=== PATIENT | female | born 1940 | race Caucasian/White ===

== ENCOUNTER 2018-06-03 16:35 | Inpatient (IN) | payer MEDICARE, MEDICAID ==
[~2018-06-03] VITALS: Ht 162.6 cm; Wt 49.9 kg
[2018-06-03] MEDS ORDERED: Z GUARD REMEDY PASTE 57 GM TUBE TOP PRN (16:45)
[2018-06-03] MEDS ORDERED: MAGNESIUM HYDROXIDE 30 ML LIQUID UDC PO PRN (16:45)
[2018-06-03] MEDS ORDERED: PANT40TA4 PO (17:12)
[2018-06-03] MEDS ORDERED: ASPI81TA31 PO (17:12)
[2018-06-03] MEDS ORDERED: ATOR20TA PO (17:12)
[2018-06-03] MEDS ORDERED: ONDA4TAB8 PO (17:12)
[2018-06-03] MEDS ORDERED: MIRT15TA PO (17:12)
[2018-06-03] MEDS ORDERED: FAMO20TA8 PO (17:12)
[2018-06-03] MEDS ORDERED: QUET25TA PO (17:12)
[2018-06-03] MEDS ORDERED: TRAM50TA2 PO (17:12)
[2018-06-03] MEDS ORDERED: CHOL10002 PO (17:12)
[2018-06-03] MEDS ORDERED: MERO500V3 IV (17:12)
[2018-06-03] MEDS ORDERED: SERT50TA PO (17:12)
[2018-06-03] MEDS ORDERED: ALLO100T PO (17:12)
[2018-06-03] MEDS ORDERED: METO25TA3 PO (17:12)
[2018-06-03] MEDS: DOCUSATE SODIUM 100 MG CAPSULE PO SCH (21:00)
[2018-06-04 05:14] VITALS: BP 141/56
[2018-06-04 06:30] VITALS: BP 128/53
[2018-06-04 08:30] VITALS: BP 128/73
[2018-06-04] MEDS ORDERED: ONDANSETRON ODT 4 MG TAB.RAPDIS SL PRN (09:15)
[2018-06-04] MEDS: PANTOPRAZOLE SODIUM 40 MG TABLET.DR PO SCH (11:17)
[2018-06-04] MEDS: ACETAMINOPHEN 325 MG TABLET PO PRN (13:02)
[2018-06-04 16:11] VITALS: BP 110/58
[2018-06-04 19:00] VITALS: BP 129/66
[2018-06-04] MEDS: QUETIAPINE FUMARATE 25 MG TABLET PO SCH (20:34)
[2018-06-04] MEDS: ATORVASTATIN 20 MG TABLET PO SCH (20:35)
[2018-06-04] MEDS: MIRTAZAPINE 15 MG TABLET PO SCH (20:35)
[2018-06-04] MEDS: DOCUSATE SODIUM 100 MG CAPSULE PO SCH (20:35)
[2018-06-04] MEDS ORDERED: FLUTICASONE/SALMETEROL 500/50 EACH DISK.W.DEV INH SCH (21:00)
[2018-06-04] MEDS: FLUTICASONE/VILANTEROL 1 EACH BLST.W.DEV INH SCH (21:57)
[2018-06-04] MEDS: MEROPENEM 500 MG in IV NORMAL SALINE 50 ML IV SCH (21:59)
[2018-06-04] MEDS: ALBUTEROL SULFATE 1.25 MG/3 ML NEBU NEB PRN (22:13)
[2018-06-05 04:00] VITALS: BP 131/66
[2018-06-05] MEDS: PANTOPRAZOLE SODIUM 40 MG TABLET.DR PO SCH (05:58)
[2018-06-05 07:34] VITALS: BP 129/61
[2018-06-05] MEDS ORDERED: FAMOTIDINE 20 MG TABLET PO SCH (09:00)
[2018-06-05] MEDS ORDERED: ALLOPURINOL 100 MG TABLET PO SCH (09:00)
[2018-06-05] MEDS: CHOLECALCIFEROL 1,000 UNIT TABLET PO SCH (09:10)
[2018-06-05] MEDS: ASPIRIN 81 MG TAB.CHEW PO SCH (09:10)
[2018-06-05] MEDS: FLUTICASONE/VILANTEROL 1 EACH BLST.W.DEV INH SCH ×2 (09:11→11:00)
[2018-06-05] MEDS: MEROPENEM 500 MG in IV NORMAL SALINE 50 ML IV SCH ×2 (09:13→20:32)
[2018-06-05] MEDS: SERTRALINE HCL 50 MG TABLET PO SCH (09:14)
[2018-06-05] MEDS: METOPROLOL SUCCINATE XL 25 MG TAB.SR.24H PO SCH (09:14)
[2018-06-05 16:14] VITALS: BP 128/61
[2018-06-05 19:41] VITALS: BP 120/62
[2018-06-05] MEDS: ATORVASTATIN 20 MG TABLET PO SCH (20:32)
[2018-06-05] MEDS: DOCUSATE SODIUM 100 MG CAPSULE PO SCH (20:32)
[2018-06-05] MEDS: MIRTAZAPINE 15 MG TABLET PO SCH (20:33)
[2018-06-05] MEDS: QUETIAPINE FUMARATE 25 MG TABLET PO SCH (20:35)
[2018-06-05] MEDS ORDERED: FLUTICASONE/SALMETEROL 500/50 EACH DISK.W.DEV INH SCH (21:00)
[2018-06-06 05:00] VITALS: BP 149/74
[2018-06-06] MEDS: PANTOPRAZOLE SODIUM 40 MG TABLET.DR PO SCH (05:27)
[2018-06-06 07:34] VITALS: BP 112/69
[2018-06-06] MEDS ORDERED: MUPIROCIN 2% OINT 22 GM TUBE NS SCH (09:00)
[2018-06-06] MEDS: CHOLECALCIFEROL 1,000 UNIT TABLET PO SCH ×2 (09:40→10:10)
[2018-06-06] MEDS: ALLOPURINOL 100 MG TABLET PO SCH ×2 (09:41→10:10)
[2018-06-06] MEDS: SERTRALINE HCL 50 MG TABLET PO SCH ×2 (09:41→10:10)
[2018-06-06] MEDS: METOPROLOL SUCCINATE XL 25 MG TAB.SR.24H PO SCH ×2 (09:41→10:11)
[2018-06-06] MEDS: ASPIRIN 81 MG TAB.CHEW PO SCH (10:11)
[2018-06-06] MEDS: MEROPENEM 500 MG in IV NORMAL SALINE 50 ML IV SCH (10:12)
[2018-06-06] MEDS: FLUTICASONE/VILANTEROL 1 EACH BLST.W.DEV INH SCH ×2 (10:12)
[2018-06-06] MEDS: ALBUTEROL SULFATE 1.25 MG/3 ML NEBU NEB PRN (15:29)
[2018-06-06 15:45] VITALS: BP 130/73
[2018-06-06 20:10] VITALS: BP 127/67
[2018-06-06] MEDS: QUETIAPINE FUMARATE 25 MG TABLET PO SCH (21:04)
[2018-06-06] MEDS: MIRTAZAPINE 15 MG TABLET PO SCH (21:04)
[2018-06-06] MEDS: DOCUSATE SODIUM 100 MG CAPSULE PO SCH (21:04)
[2018-06-06] MEDS: ATORVASTATIN 20 MG TABLET PO SCH (21:04)
[2018-06-07] MEDS: PANTOPRAZOLE SODIUM 40 MG TABLET.DR PO SCH (06:27)
[2018-06-07 08:00] VITALS: BP 130/67
[2018-06-07] MEDS: ALLOPURINOL 100 MG TABLET PO SCH (08:41)
[2018-06-07] MEDS: CHOLECALCIFEROL 1,000 UNIT TABLET PO SCH (08:41)
[2018-06-07] MEDS: SERTRALINE HCL 50 MG TABLET PO SCH (08:41)
[2018-06-07] MEDS: predniSONE 20 MG TABLET PO SCH (08:41)
[2018-06-07] MEDS: ASPIRIN 81 MG TAB.CHEW PO SCH (08:42)
[2018-06-07] MEDS: METOPROLOL SUCCINATE XL 25 MG TAB.SR.24H PO SCH (08:42)
[2018-06-07] MEDS: FLUTICASONE/VILANTEROL 1 EACH BLST.W.DEV INH SCH (08:43)
[2018-06-07 20:00] VITALS: BP 127/61
[2018-06-07] MEDS: ACETAMINOPHEN 325 MG TABLET PO PRN (20:12)
[2018-06-07] MEDS: QUETIAPINE FUMARATE 25 MG TABLET PO SCH (20:13)
[2018-06-07] MEDS: ATORVASTATIN 20 MG TABLET PO SCH (20:13)
[2018-06-07] MEDS: DOCUSATE SODIUM 100 MG CAPSULE PO SCH (20:13)
[2018-06-07] MEDS: MIRTAZAPINE 15 MG TABLET PO SCH (20:13)
[2018-06-08 05:54] VITALS: BP 128/65
[2018-06-08] MEDS: PANTOPRAZOLE SODIUM 40 MG TABLET.DR PO SCH (07:14)
[2018-06-08] MEDS: CHOLECALCIFEROL 1,000 UNIT TABLET PO SCH (08:16)
[2018-06-08] MEDS: ALLOPURINOL 100 MG TABLET PO SCH (08:17)
[2018-06-08] MEDS: SERTRALINE HCL 50 MG TABLET PO SCH (08:18)
[2018-06-08] MEDS: predniSONE 20 MG TABLET PO SCH (08:18)
[2018-06-08] MEDS: ASPIRIN 81 MG TAB.CHEW PO SCH (08:18)
[2018-06-08] MEDS: FLUTICASONE/VILANTEROL 1 EACH BLST.W.DEV INH SCH (08:19)
[2018-06-08] MEDS: METOPROLOL SUCCINATE XL 25 MG TAB.SR.24H PO SCH (08:20)
[2018-06-08 08:38] VITALS: BP 139/63
[2018-06-08] MEDS: ALBUTEROL SULFATE 1.25 MG/3 ML NEBU NEB PRN ×2 (15:13→21:28)
[2018-06-08 15:49] VITALS: BP 109/62
[2018-06-08 20:00] VITALS: BP 105/61
[2018-06-08] MEDS: MIRTAZAPINE 15 MG TABLET PO SCH (21:17)
[2018-06-08] MEDS: QUETIAPINE FUMARATE 25 MG TABLET PO SCH (21:17)
[2018-06-08] MEDS: DOCUSATE SODIUM 100 MG CAPSULE PO SCH (21:17)
[2018-06-08] MEDS: ATORVASTATIN 20 MG TABLET PO SCH (21:17)
[2018-06-09 04:00] VITALS: BP 146/57
[2018-06-09] MEDS: PANTOPRAZOLE SODIUM 40 MG TABLET.DR PO SCH (05:52)
[2018-06-09 07:45] LABS: BASOPHILS % (AUTO) 0.4 % (0.0-2.0); EOSINOPHILS % (AUTO) 0.4 % (0.0-7.0); HEMATOCRIT 34.4 % (31.2-41.9); HEMOGLOBIN 10.8 g/dL (10.9-14.3); LYMPHOCYTES # (AUTO) 2.7 K/uL (20.0-40.0); LYMPHOCYTES % (AUTO) 23.7 % (20.5-51.5); MEAN CORPUSCULAR HEMOGLOBIN 30.9 uug (24.7-32.8); MEAN CORPUSCULAR HGB CONC 32 g/dL (32.3-35.6); MEAN CORPUSCULAR VOLUME 98.2 fL (75.5-95.3); MONOCYTES # (AUTO) 0.7 K/uL (2.0-10.0); MONOCYTES % (AUTO) 5.8 % (0.0-11.0); NEUTROPHILS # (AUTO) 7.8 K/uL (1.8-8.9); NEUTROPHILS % (AUTO) 69.7 % (38.5-71.5); PLATELET COUNT (AUTO) 198 K/uL (179-408); RED BLOOD CELL COUNT(AUTO) 3.51 MIL/uL (3.63-4.92); WHITE BLOOD COUNT (AUTO) 11.2 K/uL (3.8-11.8)
[2018-06-09 08:07] LABS: ALANINE AMINOTRANSFERASE 11 U/L (14-59); ALKALINE PHOSPHATASE 135 U/L (50-136); ASPARTATE AMINOTRANSFERASE 13 U/L (15-37); BILIRUBIN,TOTAL 0.2 mg/dL (0.2-1.0); CARBON DIOXIDE 29 mmol/L (21-32); CHLORIDE 111 mmol/L (98-107); CREATININE 1.3 mg/dL (0.6-1.3); GLUCOSE 90 mg/dL (74-106); POTASSIUM 3.9 mmol/L (3.5-5.1); TOTAL PROTEIN, SERUM 5.1 g/dL (6.4-8.2); UREA NITROGEN, BLOOD 27 mg/dL (7-18)
[2018-06-09] MEDS: FLUTICASONE/VILANTEROL 1 EACH BLST.W.DEV INH SCH (08:32)
[2018-06-09] MEDS: ASPIRIN 81 MG TAB.CHEW PO SCH (08:32)
[2018-06-09] MEDS: predniSONE 20 MG TABLET PO SCH (08:33)
[2018-06-09] MEDS: METOPROLOL SUCCINATE XL 25 MG TAB.SR.24H PO SCH (08:33)
[2018-06-09] MEDS: CHOLECALCIFEROL 1,000 UNIT TABLET PO SCH (08:33)
[2018-06-09] MEDS: SERTRALINE HCL 50 MG TABLET PO SCH (08:34)
[2018-06-09] MEDS: ALLOPURINOL 100 MG TABLET PO SCH (08:34)
[2018-06-09 08:45] VITALS: BP 147/67
[2018-06-09] MEDS: ACETAMINOPHEN 325 MG TABLET PO PRN (14:52)
[2018-06-09 16:37] VITALS: BP 107/51
[2018-06-09] MEDS: MIRTAZAPINE 15 MG TABLET PO SCH (21:03)
[2018-06-09] MEDS: QUETIAPINE FUMARATE 25 MG TABLET PO SCH (21:03)
[2018-06-09] MEDS: DOCUSATE SODIUM 100 MG CAPSULE PO SCH (21:03)
[2018-06-09] MEDS: ATORVASTATIN 20 MG TABLET PO SCH (21:03)
[2018-06-09 21:51] VITALS: BP 93/59
[2018-06-10 05:53] VITALS: BP 101/73
[2018-06-10] MEDS: PANTOPRAZOLE SODIUM 40 MG TABLET.DR PO SCH (06:37)
[2018-06-10 07:32] VITALS: BP 135/62
[2018-06-10 07:45] LABS: BASOPHILS # (AUTO) 0.1 K/uL (0.0-8.0); BASOPHILS % (AUTO) 0.5 % (0.0-2.0); EOSINOPHILS # (AUTO) 0.1 K/uL (0.0-0.7); EOSINOPHILS % (AUTO) 0.6 % (0.0-7.0); HEMATOCRIT 32.5 % (31.2-41.9); HEMOGLOBIN 10.3 g/dL (10.9-14.3); LYMPHOCYTES # (AUTO) 2.5 K/uL (20.0-40.0); MEAN CORPUSCULAR HEMOGLOBIN 31.3 uug (24.7-32.8); MEAN CORPUSCULAR HGB CONC 32 g/dL (32.3-35.6); MEAN CORPUSCULAR VOLUME 98.5 fL (75.5-95.3); MONOCYTES # (AUTO) 0.8 K/uL (2.0-10.0); MONOCYTES % (AUTO) 6.9 % (0.0-11.0); NEUTROPHILS # (AUTO) 7.9 K/uL (1.8-8.9); PLATELET COUNT (AUTO) 219 K/uL (179-408); WHITE BLOOD COUNT (AUTO) 11.3 K/uL (3.8-11.8)
[2018-06-10 07:59] LABS: THYROID STIMULATING HORMONE 5.308 mIU/mL (0.358-3.740)
[2018-06-10 08:18] LABS: URIC ACID 4.6 mg/dL (2.6-6.0)
[2018-06-10] MEDS: predniSONE 20 MG TABLET PO SCH (08:43)
[2018-06-10] MEDS: SERTRALINE HCL 50 MG TABLET PO SCH (08:43)
[2018-06-10] MEDS: CHOLECALCIFEROL 1,000 UNIT TABLET PO SCH (08:43)
[2018-06-10] MEDS: ASPIRIN 81 MG TAB.CHEW PO SCH (08:43)
[2018-06-10] MEDS: METOPROLOL SUCCINATE XL 25 MG TAB.SR.24H PO SCH (08:44)
[2018-06-10] MEDS: ALLOPURINOL 100 MG TABLET PO SCH (08:44)
[2018-06-10] MEDS: FLUTICASONE/VILANTEROL 1 EACH BLST.W.DEV INH SCH (08:51)
[2018-06-10 15:45] VITALS: BP 148/67
[2018-06-10] MEDS: ATORVASTATIN 20 MG TABLET PO SCH (20:22)
[2018-06-10] MEDS: QUETIAPINE FUMARATE 25 MG TABLET PO SCH (20:22)
[2018-06-10] MEDS: MIRTAZAPINE 15 MG TABLET PO SCH (20:23)
[2018-06-10] MEDS: DOCUSATE SODIUM 100 MG CAPSULE PO SCH (20:24)
[2018-06-10 21:22] VITALS: BP 97/68
[2018-06-11 05:00] VITALS: BP 97/69
[2018-06-11] MEDS: PANTOPRAZOLE SODIUM 40 MG TABLET.DR PO SCH (06:15)
[2018-06-11] MEDS: METOPROLOL SUCCINATE XL 25 MG TAB.SR.24H PO SCH (09:00)
[2018-06-11] MEDS: SERTRALINE HCL 50 MG TABLET PO SCH (09:23)
[2018-06-11] MEDS: ASPIRIN 81 MG TAB.CHEW PO SCH (09:23)
[2018-06-11] MEDS: CHOLECALCIFEROL 1,000 UNIT TABLET PO SCH (09:23)
[2018-06-11] MEDS: predniSONE 20 MG TABLET PO SCH (09:23)
[2018-06-11] MEDS: ALLOPURINOL 100 MG TABLET PO SCH (09:24)
[2018-06-11] MEDS: FLUTICASONE/VILANTEROL 1 EACH BLST.W.DEV INH SCH (09:26)
[2018-06-11 09:43] VITALS: BP 90/61
[2018-06-11 13:31] LABS: *OCCULT BLOOD STOOL NEGATIVE (NEGATIVE)
[2018-06-11 16:02] VITALS: BP 124/60
[2018-06-11] MEDS: ACETAMINOPHEN 325 MG TABLET PO PRN (17:49)
[2018-06-11 20:47] VITALS: BP 101/71
[2018-06-11] MEDS: QUETIAPINE FUMARATE 25 MG TABLET PO SCH (20:49)
[2018-06-11] MEDS: DOCUSATE SODIUM 100 MG CAPSULE PO SCH (20:49)
[2018-06-11] MEDS: ATORVASTATIN 20 MG TABLET PO SCH (20:49)
[2018-06-11] MEDS: MIRTAZAPINE 15 MG TABLET PO SCH (20:50)
[2018-06-12 05:57] VITALS: BP 117/82
[2018-06-12] MEDS: PANTOPRAZOLE SODIUM 40 MG TABLET.DR PO SCH (06:37)
[2018-06-12 08:00] VITALS: BP 98/76
[2018-06-12] MEDS: SERTRALINE HCL 50 MG TABLET PO SCH (08:47)
[2018-06-12] MEDS: predniSONE 20 MG TABLET PO SCH (08:47)
[2018-06-12] MEDS: CHOLECALCIFEROL 1,000 UNIT TABLET PO SCH (08:47)
[2018-06-12] MEDS: ASPIRIN 81 MG TAB.CHEW PO SCH (08:48)
[2018-06-12] MEDS: ALLOPURINOL 100 MG TABLET PO SCH (08:48)
[2018-06-12] MEDS: METOPROLOL SUCCINATE XL 25 MG TAB.SR.24H PO SCH (08:48)
[2018-06-12] MEDS: FLUTICASONE/VILANTEROL 1 EACH BLST.W.DEV INH SCH (08:48)
[2018-06-12] MEDS: TRAMADOL HCL 50 MG TABLET PO PRN ×2 (14:40→21:25)
[2018-06-12 16:27] VITALS: BP 102/60
[2018-06-12 20:09] VITALS: BP 107/66
[2018-06-12] MEDS: MIRTAZAPINE 15 MG TABLET PO SCH (21:15)
[2018-06-12] MEDS: DOCUSATE SODIUM 100 MG CAPSULE PO SCH (21:15)
[2018-06-12] MEDS: ATORVASTATIN 20 MG TABLET PO SCH (21:15)
[2018-06-12] MEDS: QUETIAPINE FUMARATE 25 MG TABLET PO SCH (21:16)
[2018-06-13 05:44] VITALS: BP 103/71
[2018-06-13] MEDS: PANTOPRAZOLE SODIUM 40 MG TABLET.DR PO SCH (06:04)
[2018-06-13 08:00] VITALS: BP 132/64
[2018-06-13] MEDS: ALLOPURINOL 100 MG TABLET PO SCH (08:33)
[2018-06-13] MEDS: SERTRALINE HCL 50 MG TABLET PO SCH (08:33)
[2018-06-13] MEDS: FLUTICASONE/VILANTEROL 1 EACH BLST.W.DEV INH SCH (08:33)
[2018-06-13] MEDS: CHOLECALCIFEROL 1,000 UNIT TABLET PO SCH (08:33)
[2018-06-13] MEDS: METOPROLOL SUCCINATE XL 25 MG TAB.SR.24H PO SCH (08:34)
[2018-06-13] MEDS: predniSONE 20 MG TABLET PO SCH (08:34)
[2018-06-13] MEDS: ASPIRIN 81 MG TAB.CHEW PO SCH (08:34)
[2018-06-13 16:57] VITALS: BP 126/61
[2018-06-13] MEDS ORDERED: METHYL SALICYLATE/MENTHOL CREAM 28 GM TUBE TOP PRN (18:00)
[2018-06-13] MEDS: ACETAMINOPHEN 325 MG TABLET PO PRN (18:07)
[2018-06-13 19:30] VITALS: BP 96/66
[2018-06-13] MEDS: MIRTAZAPINE 15 MG TABLET PO SCH (20:58)
[2018-06-13] MEDS: QUETIAPINE FUMARATE 25 MG TABLET PO SCH (20:58)
[2018-06-13] MEDS: DOCUSATE SODIUM 100 MG CAPSULE PO SCH (20:58)
[2018-06-13] MEDS: ATORVASTATIN 20 MG TABLET PO SCH (20:59)
[2018-06-13] MEDS: TRAMADOL HCL 50 MG TABLET PO PRN (20:59)
[2018-06-14 05:44] VITALS: BP 115/76
[2018-06-14] MEDS: PANTOPRAZOLE SODIUM 40 MG TABLET.DR PO SCH (06:26)
[2018-06-14 06:47] LABS: BASOPHILS % (AUTO) 0.4 % (0.0-2.0); EOSINOPHILS # (AUTO) 0.1 K/uL (0.0-0.7); EOSINOPHILS % (AUTO) 1.1 % (0.0-7.0); HEMATOCRIT 32.1 % (31.2-41.9); HEMOGLOBIN 10.4 g/dL (10.9-14.3); LYMPHOCYTES # (AUTO) 3.5 K/uL (20.0-40.0); LYMPHOCYTES % (AUTO) 32.8 % (20.5-51.5); MEAN CORPUSCULAR HEMOGLOBIN 31.6 uug (24.7-32.8); MEAN CORPUSCULAR HGB CONC 32 g/dL (32.3-35.6); MEAN CORPUSCULAR VOLUME 97.9 fL (75.5-95.3); MONOCYTES # (AUTO) 0.9 K/uL (2.0-10.0); MONOCYTES % (AUTO) 8.6 % (0.0-11.0); NEUTROPHILS # (AUTO) 6.1 K/uL (1.8-8.9); NEUTROPHILS % (AUTO) 57.1 % (38.5-71.5); PLATELET COUNT (AUTO) 263 K/uL (179-408); RED BLOOD CELL COUNT(AUTO) 3.28 MIL/uL (3.63-4.92); WHITE BLOOD COUNT (AUTO) 10.7 K/uL (3.8-11.8)
[2018-06-14 08:00] VITALS: BP 103/52
[2018-06-14] MEDS: FLUTICASONE/VILANTEROL 1 EACH BLST.W.DEV INH SCH (08:24)
[2018-06-14] MEDS: predniSONE 20 MG TABLET PO SCH (08:25)
[2018-06-14] MEDS: SERTRALINE HCL 50 MG TABLET PO SCH (08:25)
[2018-06-14] MEDS: ASPIRIN 81 MG TAB.CHEW PO SCH (08:25)
[2018-06-14] MEDS: ALLOPURINOL 100 MG TABLET PO SCH (08:25)
[2018-06-14] MEDS: METOPROLOL SUCCINATE XL 25 MG TAB.SR.24H PO SCH (08:25)
[2018-06-14] MEDS: CHOLECALCIFEROL 1,000 UNIT TABLET PO SCH (08:25)
[2018-06-14] MEDS: ACETAMINOPHEN 325 MG TABLET PO PRN ×2 (08:25→20:19)
[2018-06-14] MEDS ORDERED: BISACODYL 10 MG SUPP.RECT RC PRN ×2 (13:30)
[2018-06-14] MEDS: ALBUTEROL SULFATE 1.25 MG/3 ML NEBU NEB PRN (13:56)
[2018-06-14 16:10] VITALS: BP 132/63
[2018-06-14 19:45] VITALS: BP 106/71
[2018-06-14] MEDS: MIRTAZAPINE 15 MG TABLET PO SCH (20:19)
[2018-06-14] MEDS: QUETIAPINE FUMARATE 25 MG TABLET PO SCH (20:19)
[2018-06-14] MEDS: ATORVASTATIN 20 MG TABLET PO SCH (20:19)
[2018-06-14] MEDS: DOCUSATE SODIUM 100 MG CAPSULE PO SCH (20:19)
[2018-06-15] MEDS: PANTOPRAZOLE SODIUM 40 MG TABLET.DR PO SCH (06:24)
[2018-06-15 06:45] VITALS: BP 106/78
[2018-06-15] MEDS: METOPROLOL SUCCINATE XL 25 MG TAB.SR.24H PO SCH (09:00)
[2018-06-15] MEDS: SERTRALINE HCL 50 MG TABLET PO SCH (09:47)
[2018-06-15] MEDS: FLUTICASONE/VILANTEROL 1 EACH BLST.W.DEV INH SCH (09:47)
[2018-06-15] MEDS: CHOLECALCIFEROL 1,000 UNIT TABLET PO SCH (09:48)
[2018-06-15] MEDS: predniSONE 20 MG TABLET PO SCH (09:48)
[2018-06-15] MEDS: ASPIRIN 81 MG TAB.CHEW PO SCH (09:48)
[2018-06-15] MEDS: ALLOPURINOL 100 MG TABLET PO SCH (09:48)
[2018-06-15] MEDS: TRAMADOL HCL 50 MG TABLET PO PRN (15:42)
[2018-06-15] MEDS: ACETAMINOPHEN 325 MG TABLET PO PRN (15:43)
[2018-06-15 16:09] VITALS: BP 100/75
[2018-06-15 20:00] VITALS: BP 112/65
[2018-06-15] MEDS: ATORVASTATIN 20 MG TABLET PO SCH (21:07)
[2018-06-15] MEDS: QUETIAPINE FUMARATE 25 MG TABLET PO SCH (21:07)
[2018-06-15] MEDS: DOCUSATE SODIUM 100 MG CAPSULE PO SCH (21:07)
[2018-06-15] MEDS: MIRTAZAPINE 15 MG TABLET PO SCH (21:07)
[2018-06-16] MEDS: ALBUTEROL SULFATE 1.25 MG/3 ML NEBU NEB PRN ×2 (05:29→09:05)
[2018-06-16] MEDS: PANTOPRAZOLE SODIUM 40 MG TABLET.DR PO SCH (06:04)
[2018-06-16] MEDS: METOPROLOL SUCCINATE XL 25 MG TAB.SR.24H PO SCH (08:50)
[2018-06-16] MEDS: ALLOPURINOL 100 MG TABLET PO SCH (08:51)
[2018-06-16] MEDS: ASPIRIN 81 MG TAB.CHEW PO SCH (08:51)
[2018-06-16] MEDS: predniSONE 20 MG TABLET PO SCH (08:51)
[2018-06-16] MEDS: FLUTICASONE/VILANTEROL 1 EACH BLST.W.DEV INH SCH (08:52)
[2018-06-16] MEDS: CHOLECALCIFEROL 1,000 UNIT TABLET PO SCH (08:52)
[2018-06-16] MEDS: SERTRALINE HCL 50 MG TABLET PO SCH (08:52)
[2018-06-16 15:44] VITALS: BP 82/58
[2018-06-16] MEDS: MIRTAZAPINE 15 MG TABLET PO SCH (20:45)
[2018-06-16] MEDS: ATORVASTATIN 20 MG TABLET PO SCH (20:46)
[2018-06-16] MEDS: QUETIAPINE FUMARATE 25 MG TABLET PO SCH (20:46)
[2018-06-16] MEDS: DOCUSATE SODIUM 100 MG CAPSULE PO SCH (20:46)
[2018-06-16 21:18] VITALS: BP 94/59
[2018-06-17 05:44] VITALS: BP 102/62
[2018-06-17] MEDS: PANTOPRAZOLE SODIUM 40 MG TABLET.DR PO SCH (06:16)
[2018-06-17 08:00] VITALS: BP 135/68
[2018-06-17] MEDS: predniSONE 20 MG TABLET PO SCH (10:15)
[2018-06-17] MEDS: SERTRALINE HCL 50 MG TABLET PO SCH (10:15)
[2018-06-17] MEDS: FLUTICASONE/VILANTEROL 1 EACH BLST.W.DEV INH SCH (10:15)
[2018-06-17] MEDS: ALLOPURINOL 100 MG TABLET PO SCH (10:16)
[2018-06-17] MEDS: METOPROLOL SUCCINATE XL 25 MG TAB.SR.24H PO SCH (10:16)
[2018-06-17] MEDS: CHOLECALCIFEROL 1,000 UNIT TABLET PO SCH (10:16)
[2018-06-17] MEDS: ASPIRIN 81 MG TAB.CHEW PO SCH (10:16)
[2018-06-17 16:27] VITALS: BP 133/66
== END 2018-06-17 16:30 | disposition home health service (06) | DRG 190 ==
PROVIDERS: ADMIT Physical Medicine & Rehabilitation Pain Medicine; ATTEND Physical Medicine & Rehabilitation Pain Medicine
DX: J44.1 Chronic obstructive pulmonary disease with (acute) exacerbation (principal); G92 Toxic encephalopathy; N39.0 Urinary tract infection, site not specified; E46 Unspecified protein-calorie malnutrition; Z68.1 Body mass index [BMI] 19.9 or less, adult; F02.80 Dementia in other diseases classified elsewhere, unspecified severity, without behavioral disturbance, psychotic disturbance, mood disturbance, and anxiety; G30.9 Alzheimer's disease, unspecified; G62.9 Polyneuropathy, unspecified; I12.9 Hypertensive chronic kidney disease with stage 1 through stage 4 chronic kidney disease, or unspecified chronic kidney disease; N18.3 Chronic kidney disease, stage 3 (moderate); Z16.12 Extended spectrum beta lactamase (ESBL) resistance; T42.4X5A Adverse effect of benzodiazepines, initial encounter; Y92.239 Unspecified place in hospital as the place of occurrence of the external cause; D64.9 Anemia, unspecified; I35.0 Nonrheumatic aortic (valve) stenosis; I25.10 Atherosclerotic heart disease of native coronary artery without angina pectoris; Z88.0 Allergy status to penicillin; R26.9 Unspecified abnormalities of gait and mobility; R53.81 Other malaise; Z87.891 Personal history of nicotine dependence; Z99.81 Dependence on supplemental oxygen; M10.9 Gout, unspecified; M19.90 Unspecified osteoarthritis, unspecified site; F25.9 Schizoaffective disorder, unspecified; R53.1 Weakness; B96.20 Unspecified Escherichia coli [E. coli] as the cause of diseases classified elsewhere; Z88.8 Allergy status to other drugs, medicaments and biological substances; Z91.012 Allergy to eggs; Z91.018 Allergy to other foods
CPT/HCPCS: 36415; 82747; 83615; 84443; 84550; 85014; 85025; 85651; 92507; 92523; 92526; 92610; 94640; 97110; 97112; 97116; 97530; 97535; J2185; J3490; J7512; J8499